=== PATIENT | male | born 1980 | race African-American/Black ===

== ENCOUNTER 2017-08-10 16:32 | Emergency (ER) | payer BC ==
--- NOTE | 2017-08-10 17:16 | EDM.PDOC ---
ED HPI GENERAL MEDICAL PROBLEM - General Chief Complaint: Gastrointestinal Problem Stated Complaint: PT VOMITING Time Seen by Provider: 08/10/17 17:16 Source of Information: Reports: Patient - History of Present Illness INITIAL COMMENTS - FREE TEXT/NARRATIVE: HISTORY AND PHYSICAL: History of present illness: [Patient has had one episode of vomiting last night he has been asymptomatic today, he presents for check as such. He has a secondary complaint of discomfort involving his big toes have examined in his toes. Her no lesions. His good capillary refill no eschar, on further interview it is revealed that he does not have insulated boots and works in the oil field with near subzero temperatures have recent. he needs to get some insulated boots, I have also perform a uric acid, although there is no redness warmth or tenderness no open lesion or exudates concerning either great toe I believe he just needs proper winter footwear. No current fever nausea vomiting diarrhea constipation chest pain shortness breath headache dizziness or palpitation no bowel or urine symptoms] Review of systems: As per history of present illness and below otherwise all systems reviewed and negative. Past medical history: As per history of present illness and as reviewed below otherwise noncontributory. Surgical history: As per history of present illness and as reviewed below otherwise noncontributory. Social history: No reported history of drug or alcohol abuse. Family history: As per history of present illness and as reviewed below otherwise noncontributory. Physical exam: HEENT: Atraumatic, normocephalic, pupils reactive, negative for conjunctival pallor or scleral icterus, mucous membranes moist, throat clear, neck supple, nontender, trachea midline. Lungs: Clear to auscultation, breath sounds equal bilaterally, chest nontender. Heart: S1S2, regular, negative for clicks, rubs, or JVD. Abdomen: Soft, nondistended, nontender. Negative for masses or hepatosplenomegaly. Negative for costovertebral tenderness. Pelvis: Stable nontender. Genitourinary: Deferred. Rectal: Deferred. Extremities: Atraumatic, negative for cords or calf pain. Neurovascular unremarkable. Neuro: Awake, alert, oriented. Cranial nerves II through XII unremarkable. Cerebellum unremarkable. Motor and sensory unremarkable throughout. Exam nonfocal. Diagnostics: []CBC CMP and uric acid Therapeutics: []Proper footwear/insulated work boots Impression: []Vomiting resolved Improper footwear for cold weather Definitive disposition and diagnosis as appropriate pending reevaluation and review of above. Bilateral Feet Pain Score (Numeric/FACES): 5 - Related Data Allergies Allergy/AdvReac Type Severity Reaction Status Date / Time No Known Allergies Allergy Verified 08/10/17 17:09 Home Meds: Home Meds . [No Known Home Meds] 08/10/17 [History] Past Medical History - Past Health History Medical/Surgical History: Denies Medical/Surgical History Social & Family History - Tobacco Use Smoking Status *Q: Never Smoker Second Hand Smoke Exposure: No - Caffeine Use Caffeine Use: Reports: Coffee, Energy Drinks, Tea - Recreational Drug Use Recreational Drug Use: No ED ROS GENERAL - Review of Systems Review Of Systems: ROS reveals no pertinent complaints other than HPI. ED EXAM, GENERAL - Physical Exam Exam: See Below Course - Vital Signs Last Recorded V/S: Last Vital Signs Temp 36.7 C 08/10/17 17:15 Pulse 95 08/10/17 17:15 Resp 18 08/10/17 17:15 BP 116/56 L 08/10/17 17:15 Pulse Ox 97 08/10/17 17:15 - Orders/Labs/Meds Labs: Laboratory Tests 08/10/17 08/10/17 Range/Units 17:22 17:22 WBC 3.08 L (4.0-11.0) K/uL RBC 4.96 (4.50-5.90) M/uL Hgb 15.5 (13.0-17.0) g/dL Hct 45.0 (38.0-50.0) % MCV 90.7 (80.0-98.0) fL MCH 31.3 (27.0-32.0) pg MCHC 34.4 (31.0-37.0) g/dL RDW Std Deviation 42.0 (28.0-62.0) fl RDW Coeff of Mehnaz 13 (11.0-15.0) % Plt Count 222 (150-400) K/uL MPV 9.70 (7.40-12.00) fL Neut % (Auto) 50.7 (48.0-80.0) % Lymph % (Auto) 35.7 (16.0-40.0) % Bradley % (Auto) 12.3 (0.0-15.0) % Eos % (Auto) 1.0 (0.0-7.0) % Baso % (Auto) 0.3 (0.0-1.5) % Neut # (Auto) 1.6 (1.4-5.7) K/uL Lymph # (Auto) 1.1 (0.6-2.4) K/uL Bradley # (Auto) 0.4 (0.0-0.8) K/uL Eos # (Auto) 0.0 (0.0-0.7) K/uL Baso # (Auto) 0.0 (0.0-0.1) K/uL Nucleated RBC % 0.0 /100WBC Nucleated RBCs # 0 K/uL Sodium 139 (136-146) mmol/L Potassium 4.0 (3.5-5.1) mmol/L Chloride 104 (98-110) mmol/L Carbon Dioxide 27 (21-31) mmol/L BUN 14 (6.0-23.0) mg/dL Creatinine 1.1 (0.6-1.5) mg/dL Est Cr Clr Drug Dosing 88.09 mL/min Estimated GFR (MDRD) > 60.0 ml/min Glucose 80 (60-110) mg/dL Uric Acid 6.0 (2.1-7.4) mg/dL Calcium 9.4 (8.8-10.8) mg/dL Total Bilirubin 0.7 (0.1-1.5) mg/dL AST 27 (5-40) IU/L ALT 42 (8-54) IU/L Alkaline Phosphatase 53 (40-150) Total Protein 7.9 (6.0-8.0) g/dL Albumin 4.1 (3.5-5.0) g/dL Globulin 3.8 H (2.0-3.5) g/dL Albumin/Globulin Ratio 1.1 L (1.3-2.8) Departure - Departure Time of Disposition: 18:18 Disposition: Home, Self-Care 01 Condition: Good Clinical Impression: Vomiting - Discharge Information Instructions: Nausea and Vomiting, Adult, [id number] Referrals: PCP,None [Primary Care Provider] - Forms: ED Department Discharge Additional Instructions: your nausea vomiting has resolved/asymptomatic at current no further treatment should be required for this recommend fluid hydration techniques as discussed Concerning her toes I believe your symptoms stem from improper footwear as insulated boots are required at the current cold temperatures which will be getting much colder your risk of frostbite without proper footwear Return if symptoms persist or worsen or new concerning symptoms develop Follow-up with primary care in 2 weeks sooner as needed [facility] - Primary Care [address] [place] [id number] The following information is given to patients seen in the emergency department who are being discharged to home. This information is to outline your options for follow-up care. We provide all patients seen in our emergency department with a follow-up referral. The need for follow-up, as well as the timing and circumstances, are variable depending upon the specifics of your emergency department visit. If you don't have a primary care physician on staff, we will provide you with a referral. We always advise you to contact your personal physician following an emergency department visit to inform them of the circumstance of the visit and for follow-up with them and/or the need for any referrals to a consulting specialist. The emergency department will also refer you to a specialist when appropriate. This referral assures that you have the opportunity for follow-up care with a specialist. All of these measure are taken in an effort to provide you with optimal care, which includes your follow-up. Under all circumstances we always encourage you to contact your private physician who remains a resource for coordinating your care. When calling for follow-up care, please make the office aware that this follow-up is from your recent emergency room visit. If for any reason you are refused follow-up, please contact the [facility] emergency department at and asked to speak to the emergency department charge nurse.
[2017-08-10 17:58] LABS: CHLORIDE,CL 104 mmol/L (98-110); SODIUM,NA 139 mmol/L (136-146)
== END 2017-08-10 18:32 | disposition home or self-care (01) ==
LOC: MW.ED 16:32
DX: R11.10 Vomiting, unspecified (principal); M79.675 Pain in left toe(s); M79.674 Pain in right toe(s)
CPT/HCPCS: 36415; 80053; 84550; 85025; 99282; 99283

== ENCOUNTER 2018-03-19 00:37 | Emergency (ER) | payer BC ==
[2018-03-19] MEDS ORDERED: Albuterol/Ipratropium 3.0-0.5 MG/3 ML Neb Soln ONE (01:23)
[2018-03-19] MEDS ORDERED: Albuterol/Ipratropium 3.0-0.5 MG/3 ML Neb Soln NEB ONE (01:31)
[2018-03-19] MEDS ORDERED: Sodium Chloride 0.9% 2.5 ML Syringe FLUSH PRN (01:36)
[2018-03-19] MEDS ORDERED: Sodium Chloride 0.9% 1,000 ML IV ONE (01:36)
[2018-03-19] MEDS ORDERED: Sodium Chloride 0.9% 10 ML Syringe FLUSH PRN (01:36)
[2018-03-19] MEDS ORDERED: methylPREDNISolone Sodium Succinate 125 MG/2 ML SDV IVPUSH ONE (01:36)
--- NOTE | 2018-03-19 01:50 | EDM.PDOC ---
ED HPI GENERAL MEDICAL PROBLEM - General Chief Complaint: Respiratory Problem Stated Complaint: SHORTNESS OF BREATH Time Seen by Provider: 03/19/18 01:30 - History of Present Illness INITIAL COMMENTS - FREE TEXT/NARRATIVE: HISTORY AND PHYSICAL: History of present illness: The patient is a 37-year-old male who has a history of childhood asthma and has not had any asthma attacks as a teen or adults and presents with sudden onset of shortness of breath and wheezing bilaterally that started this evening. The patient tells me he has been living here in town for the last 1-1/2 years and he has not had any issues but today he was out in the [place] doing work and came home went to sleep and woke up with the shortness of breath. He has not had any illnesses recently and has had no shortness of breath fever cough or runny nose abdominal pain vomiting or diarrhea. The patient has no medication to use for asthma. With tonight's events he just felt like he couldn't get air in or out and came for evaluation. He has no leg pain or swelling no cardiac history and has no local provider. Patient is not a smoker but says he is around people that do smoke. Review of systems: As per history of present illness and below otherwise all systems reviewed and negative. Past medical history: As per history of present illness and as reviewed below otherwise noncontributory. Surgical history: As per history of present illness and as reviewed below otherwise noncontributory. Social history: No reported history of drug or alcohol abuse. Family history: As per history of present illness and as reviewed below otherwise noncontributory. Physical exam: General: Well-developed thin man who is nontoxic and vital signs were noted by me. His initial O2 sat on room air was 91%. Is not breathless on my evaluation and he is not hoarse HEENT: Atraumatic, normocephalic, pupils reactive, negative for conjunctival pallor or scleral icterus, mucous membranes moist, throat clear, neck supple, nontender, trachea midline. Lungs: Diminished air sounds in the braces and bilateral inspiratory and expiratory wheezing throughout all [place], there is no stridor, and no sensory muscle use, breath sounds equal bilaterally, chest nontender. Heart: S1S2, regular rate and rhythm no overt murmurs Abdomen: Soft, nondistended, nontender. Negative for masses or hepatosplenomegaly. NABS Pelvis: Stable nontender. Genitourinary: Deferred. Rectal: Deferred. Extremities: Atraumatic, negative for cords or calf pain. Neurovascular unremarkable. No pedal edema Neuro: Awake, alert, oriented. Cranial nerves II through XII unremarkable. Cerebellum unremarkable. Motor and sensory unremarkable throughout. Exam nonfocal. Diagnostics: CBC CMP chest x-ray Therapeutics: IV fluids duo neb Solu-Medrol, spacer On reevaluation the wheezing is significantly improved and the patient is feeling better. Repeat O2 sat on room air is 93-95%. We'll plan on discharge home with a spacer albuterol and prednisone Impression: Acute bronchospasm with history of childhood asthma Definitive disposition and diagnosis as appropriate pending reevaluation and review of above. lower chest Pain Score (Numeric/FACES): 10 - Related Data Allergies Allergy/AdvReac Type Severity Reaction Status Date / Time No Known Allergies Allergy Verified 03/19/18 01:31 Home Meds: Home Meds . [No Known Home Meds] 08/10/17 [History] Past Medical History - Past Health History Medical/Surgical History: Denies Medical/Surgical History Respiratory History: Reports: Asthma Social & Family History - Family History Family Medical History: Noncontributory - Tobacco Use Smoking Status *Q: Never Smoker - Caffeine Use Caffeine Use: Reports: Coffee, Energy Drinks, Tea - Recreational Drug Use Recreational Drug Use: No ED ROS GENERAL - Review of Systems Review Of Systems: ROS reveals no pertinent complaints other than HPI. ED EXAM, GENERAL - Physical Exam Exam: See Below (See dictation) Course - Vital Signs Last Recorded V/S: Last Vital Signs Temp 36.6 C 03/19/18 00:37 Pulse 96 03/19/18 00:37 Resp 24 H 03/19/18 00:37 BP 165/88 H 03/19/18 00:37 Pulse Ox 91 L 03/19/18 00:37 - Orders/Labs/Meds Orders: Active Orders 24 hr Category Date Time Status Oxygen Therapy, ED [RC] ASDIRECTED Care 03/19/18 01:36 Active Pulse Oximetry [RC] ASDIRECTED Care 03/19/18 01:36 Active RT Aerosol Therapy [RC] ASDIRECTED Care 03/19/18 01:32 Active Chest 2V [CR] Stat Exams 03/19/18 01:36 Taken Sodium Chloride 0.9% [Saline Flush] Med 03/19/18 01:36 Active 10 ml FLUSH ASDIRECTED PRN Sodium Chloride 0.9% [Saline Flush] Med 03/19/18 01:36 Active 2.5 ml FLUSH ASDIRECTED PRN Saline Lock Insert [OM.PC] Stat Oth 03/19/18 01:36 Ordered Medication Orders Sodium Chloride (Saline Flush) 10 ml FLUSH ASDIRECTED PRN PRN Reason: Keep Vein Open Last Admin: 03/19/18 01:45 Dose: 10 ml Sodium Chloride (Saline Flush) 2.5 ml FLUSH ASDIRECTED PRN PRN Reason: Keep Vein Open Last Admin: 03/19/18 01:46 Dose: 2.5 ml Labs: Laboratory Tests 03/19/18 03/19/18 Range/Units 01:45 01:45 WBC 7.93 (4.0-11.0) K/uL RBC 5.01 (4.50-5.90) M/uL Hgb 15.6 (13.0-17.0) g/dL Hct 44.7 (38.0-50.0) % MCV 89.2 (80.0-98.0) fL MCH 31.1 (27.0-32.0) pg MCHC 34.9 (31.0-37.0) g/dL RDW Std Deviation 42.1 (28.0-62.0) fl RDW Coeff of Mehnaz 13 (11.0-15.0) % Plt Count 242 (150-400) K/uL MPV 9.40 (7.40-12.00) fL Neut % (Auto) 48.1 (48.0-80.0) % Lymph % (Auto) 32.7 (16.0-40.0) % Sierra % (Auto) 6.7 (0.0-15.0) % Eos % (Auto) 11.9 H (0.0-7.0) % Baso % (Auto) 0.6 (0.0-1.5) % Neut # (Auto) 3.8 (1.4-5.7) K/uL Lymph # (Auto) 2.6 H (0.6-2.4) K/uL Sierra # (Auto) 0.5 (0.0-0.8) K/uL Eos # (Auto) 0.9 H (0.0-0.7) K/uL Baso # (Auto) 0.1 (0.0-0.1) K/uL Nucleated RBC % 0.0 /100WBC Nucleated RBCs # 0 K/uL Sodium 141 (136-148) mmol/L Potassium 4.0 (3.5-5.1) mmol/L Chloride 104 (98-107) mmol/L Carbon Dioxide 30.9 (21.0-32.0) mmol/L BUN 14 (7.0-18.0) mg/dL Creatinine 1.1 (0.8-1.3) mg/dL Est Cr Clr Drug Dosing TNP Estimated GFR (MDRD) > 60.0 ml/min Glucose 91 (74-106) mg/dL Calcium 8.9 (8.5-10.1) mg/dL Total Bilirubin 0.8 (0.2-1.0) mg/dL AST 25 (15-37) IU/L ALT 30 (14-63) IU/L Alkaline Phosphatase 66 (46-116) U/L Total Protein 8.2 (6.4-8.2) g/dL Albumin 4.2 (3.4-5.0) g/dL Globulin 4.0 H (2.0-3.5) g/dL Albumin/Globulin Ratio 1.1 L (1.3-2.8) Meds: Medications Generic Name Dose Route Start Last Admin Trade Name Freq PRN Reason Stop Dose Admin Sodium Chloride 10 ml 03/19/18 01:36 03/19/18 01:45 Saline Flush FLUSH 10 ml ASDIRECTED PRN Administration Keep Vein Open Sodium Chloride 2.5 ml 03/19/18 01:36 03/19/18 01:46 Saline Flush FLUSH 2.5 ml ASDIRECTED PRN Administration Keep Vein Open Discontinued Medications Generic Name Dose Route Start Last Admin Trade Name Freq PRN Reason Stop Dose Admin Albuterol/Ipratropium Confirm 03/19/18 01:23 03/19/18 01:33 Duoneb 3.0-0.5 Mg/3 Ml Administered 03/19/18 01:24 Not Given Dose 3 ml .ROUTE .STK-MED ONE Albuterol/Ipratropium 3 ml 03/19/18 01:31 03/19/18 01:32 Duoneb 3.0-0.5 Mg/3 Ml NEB 03/19/18 01:32 3 ml ONETIME ONE Administration Sodium Chloride 1,000 mls @ 999 mls/hr 03/19/18 01:36 03/19/18 01:52 Normal Saline IV 03/19/18 02:36 999 mls/hr STAT ONE Administration Methylprednisolone Sodium Succinate 125 mg 03/19/18 01:36 03/19/18 01:52 Solu-Medrol IVPUSH 03/19/18 01:37 125 mg ONETIME ONE Administration Departure - Departure Time of Disposition: 03:11 Disposition: Home, Self-Care 01 Condition: Good Clinical Impression: Acute bronchospasm, History of asthma - Discharge Information Referrals: PCP,None [Primary Care Provider] - Forms: ED Department Discharge Additional Instructions: The following information is given to patients seen in the emergency department who are being discharged to home. This information is to outline your options for follow-up care. We provide all patients seen in our emergency department with a follow-up referral. The need for follow-up, as well as the timing and circumstances, are variable depending upon the specifics of your emergency department visit. If you don't have a primary care physician on staff, we will provide you with a referral. We always advise you to contact your personal physician following an emergency department visit to inform them of the circumstance of the visit and for follow-up with them and/or the need for any referrals to a consulting specialist. The emergency department will also refer you to a specialist when appropriate. This referral assures that you have the opportunity for followup care with a specialist. All of these measure are taken in an effort to provide you with optimal care, which includes your followup. Under all circumstances we always encourage you to contact your private physician who remains a resource for coordinating your care. When calling for followup care, please make the office aware that this follow-up is from your recent emergency room visit. If for any reason you are refused follow-up, please contact the [facility] emergency department at and ask to speak to the emergency department charge nurse. [facility] Primary care- [place] [address] Please push hydration and try to avoid environmental triggers. Please call and schedule a follow-up appointment in our clinic for further care and evaluation and return to ER as needed and as discussed. Please start the prednisone later this afternoon/early evening and use the albuterol inhaler every and hours for the next 2 days and then as needed. - My Orders Last 24 Hours: My Active Orders 03/19/18 01:32 RT Aerosol Therapy [RC] ASDIRECTED 03/19/18 01:36 Oxygen Therapy, ED [RC] ASDIRECTED Pulse Oximetry [RC] ASDIRECTED Chest 2V [CR] Stat Sodium Chloride 0.9% [Saline Flush] 10 ml FLUSH ASDIRECTED PRN Sodium Chloride 0.9% [Saline Flush] 2.5 ml FLUSH ASDIRECTED PRN Saline Lock Insert [OM.PC] Stat - Assessment/Plan Last 24 Hours: My Active Orders 03/19/18 01:32 RT Aerosol Therapy [RC] ASDIRECTED 03/19/18 01:36 Oxygen Therapy, ED [RC] ASDIRECTED Pulse Oximetry [RC] ASDIRECTED Chest 2V [CR] Stat Sodium Chloride 0.9% [Saline Flush] 10 ml FLUSH ASDIRECTED PRN Sodium Chloride 0.9% [Saline Flush] 2.5 ml FLUSH ASDIRECTED PRN Saline Lock Insert [OM.PC] Stat
[2018-03-19 02:18] LABS: CHLORIDE,CL 104 mmol/L (98-107); SODIUM,NA 141 mmol/L (136-148)
--- NOTE | 2018-03-19 17:30 | CR ---
EXAM DATE: 03/19/18 PATIENT'S AGE: 37 Patient: YUMIKO ABREU Facility: [place], [place] Site . Site : [id number] Study: XRay Chest [id number]/[id number] 2:30:27 AM Ordering Physician: Ary Vera Final Report: INDICATION: Shortness of breath TECHNIQUE: Chest radiograph 2 views COMPARISON: None FINDINGS: Mediastinum: The heart silhouette is normal in size and morphology. The mediastinum is normal in appearance. Lungs: Both lungs are unremarkable in appearance. No sign of pleural effusion seen. No pneumothorax is identified. Bones and soft tissue: Unremarkable for age. IMPRESSION: 1. No acute cardiopulmonary disease is seen. Dictated by: Mahesh Chandler MD @ 03/19/2018 02:31:18 (Electronic Signature) Report Signed by Proxy. [facility] MED[facility] CENTERShabana
== END 2018-03-19 03:20 | disposition home or self-care (01) ==
LOC: MW.ED 00:37
DX: J98.01 Acute bronchospasm (principal); Z87.09 Personal history of other diseases of the respiratory system
CPT/HCPCS: 36415; 71046; 80053; 85025; 94640; 96361; 96374; 99285; J2930; J7040; 99283